=== PATIENT | male | born 1945 | race Caucasian/White ===

== ENCOUNTER 2017-04-17 13:21 | Emergency (ER) | payer OTHER ==
[2017-04-17 13:27] VITALS: BMI 29.8
[2017-04-17] MEDS ORDERED: LR 1000 ML IV 1,000 ML IV ONE ×2 (13:50→13:56)
[2017-04-17] MEDS ORDERED: PHENERGAN INJ 25 MG IV ONE (13:51)
[2017-04-17] MEDS ORDERED: MORPHINE SULFATE INJ 4 MG IVP ONE (13:53)
[2017-04-17] MEDS ORDERED: PHENERGAN INJ 25 MG ONE (13:55)
[2017-04-17] MEDS ORDERED: MORPHINE SULFATE INJ 4 MG ONE (13:56)
--- NOTE | 2017-04-17 13:59 | DR.GENAD ---
HPI - PCP Primary Care Physician: DR. AGUILAR - Complaint/Symptoms Chief Complaint Doctors Comments: Patient admits to a headache for one month, he has not taken any medication to date for headache. He was seen last week by his math tutor and given IV fluids. 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 He was scheduled to go to [place] this week for treatment but the weather was too bad. Today presents with dizziness and headache. Spouse reports that he has hydrocodone 5/325 but he will not take the medication because the acetaminophen causes liver damage. Chief Complaint:: PATIENT STATED HE HAS HAD A REALLY BAD HEADACHE FOR WEEKS, DIZZY, WEAK. PATIENT HAS COLON CA AND LEFT LUNG CA. - Source History Provided: Patient - Mode of Arrival Mode of Arrival: Ambulatory - Timing Onset of Chief Complaint: 04/03/17 PMH - PMH Past Medical History: Yes Past Medical History Comment: CANCER Past Surgical History: Yes Surgical History: Abdominal Surgery, Bowel Resection, Cholecystectomy - Family History History of Family Medical Conditions: No - Social History Does patient currently use any type of tobacco product: No Have you used tobacco products in the last 12 months: No Type of Tobacco Use: None Does any household member use tobacco: No Alcohol Use: None Do you use any recreational Drugs:: No Lives With: Family Lives Where: Home - infectious screening In the last 2 months have you had wt loss of >10#?: NO Have you had fever, night sweats or hemotysis?: No Have you traveled outside the country in the last 6 months?: No Isolation: Standard ROS - Review of Systems Eyes: No Symptoms Reported ENTM: No Symptoms Reported Respiratoy: Other (lung cancer) Cardiovascular: No Symptoms Reported Gastrointestinal/Abdominal: No Symptoms Reported Genitourinary: No Symptoms Reported Neurological: Headache, Weakness, Dizziness Musculoskeletal: No Symptoms Reported Integumentary: No Symptoms Reported Hematologic/Lymphatic: No Symptoms Reported Endocrine: No Symptoms Reported Psychiatric: No Symptoms Reported All Other Systems: Reviewed and Negative PE - Vital Signs Vitals: Pulse Rate 80 Respiratory Rate 20 Blood Pressure [Right Arm] 124/66 Blood Pressure 182/87 O2 Sat by Pulse Oximetry 96 - General Limitations: No Limitations General Appearance: Alert, In No Apparent Distress - Head Head Exam: Normal Inspection, Atraumatic - Eyes Eye exam: Normal Appearance, PERRL, EOMI - ENT ENT Exam: Normal Exam External Ear Exam: Normal External Inspection TM/Canal Exam: Bilateral Normal Nose Exam: Normal Nose Exam Mouth Exam: Normal Inspection Throat Exam: Normal Inspection - Neck Neck Exam: Normal Inspection - Chest Chest Inspection: Normal Inspection - Respiratory Respiratory Exam: Normal Lung Sounds Bilat Respiratory Exam: Bilateral Clear to Auscultation - Cardiovascular Cardiovascular Exam: Regular Rate - Abdominal Exam Abdominal Exam: Normal Inspection, Normal Bowel Sounds Abdominal Tenderness: negative: RUQ, RLQ, LUQ, LLQ, Epigastrium, Suprapubic, Diffuse, Mild, Moderate, Severe, Other - Extremities Extremities Exam: Normal Inspection, Full ROM - Back Back Exam: Normal Inspection - Neurologic Neurological Exam: Alert, Oriented X3, CN II-XII Intact, Other (frontal headache ) - Psychiatric Psychiatric Exam: Normal Affect, Normal Mood - Skin Skin Exam: Warm, Dry, Intact Course - Reevaluation 1st: Improved (Headache better, not constant 1232) ROR - Labs Reviewed Result Diagrams: 04/17/17 14:08 04/17/17 14:08 Laboratory: WBC 7.2 X10^3/uL (3.6-10.0) 04/17/17 14:08 RBC 4.81 X10^6/uL (4.7-6.0) 04/17/17 14:08 Hgb 14.1 g/dL (13.5-18.0) 04/17/17 14:08 Hct 41.0 % (42.0-54.0) L 04/17/17 14:08 MCV 85.2 fL (80.0-100.0) 04/17/17 14:08 MCH 29.3 pg (27.0-34.0) 04/17/17 14:08 MCHC 34.4 g/dL (33.0-35.0) 04/17/17 14:08 RDW 14.4 % (11.6-16.5) 04/17/17 14:08 Plt Count 162 X10^3/uL (150.0-450.0) 04/17/17 14:08 MPV 7.7 fL (7.4-11.0) 04/17/17 14:08 Neut % 82.2 % (42.0-75.0) H 04/17/17 14:08 Lymph % 12.9 % (21.0-51.0) L 04/17/17 14:08 [place] % 3.0 % (0.0-13.0) 04/17/17 14:08 Eos % 1.2 % (0.9-2.9) 04/17/17 14:08 Baso % 0.7 % (0.2-1.0) 04/17/17 14:08 Neut # 6.0 x10^3/uL (2.2-4.8) H 04/17/17 14:08 Lymph # 0.9 X10^3/uL (1.3-2.9) L 04/17/17 14:08 [place] # 0.2 x10^3/uL (0.3-0.8) L 04/17/17 14:08 Eos # 0.1 x10^3/uL (0.0-0.2) 04/17/17 14:08 Baso # 0.0 X10^3/uL (0.0-0.1) 04/17/17 14:08 Absolute Nucleated RBC 0.0 /100WBC 04/17/17 14:08 Sodium 140 mmol/L (136-145) 04/17/17 14:08 Corrected Sodium 141 mmol/L (136-145) 04/17/17 14:08 Potassium 4.5 mmol/L (3.5-5.1) 04/17/17 14:08 Chloride 104 mmol/L (98-107) 04/17/17 14:08 Carbon Dioxide 24.4 mmol/L (21-32) 04/17/17 14:08 BUN 19 mg/dL (7-18) H 04/17/17 14:08 Creatinine 1.28 mg/dL (0.70-1.30) 04/17/17 14:08 Est GFR (MDRD) Af Amer > 60 (>60) 04/17/17 14:08 Est GFR (MDRD) Non-Af 59 (>60) 04/17/17 14:08 Glucose 129 mg/dL (65-99) H 04/17/17 14:08 Calcium 9.3 mg/dL (8.5-10.1) 04/17/17 14:08 Corrected Calcium TNP 04/17/17 14:08 Total Bilirubin 0.40 mg/dL (0.2-1.0) 04/17/17 14:08 AST 22 Units/L (15-37) 04/17/17 14:08 ALT 31 Units/L (12-78) 04/17/17 14:08 Alkaline Phosphatase 103 Units/L (46-116) 04/17/17 14:08 Total Protein 7.3 g/dL (6.4-8.2) 04/17/17 14:08 Albumin 3.7 g/dL (3.4-5.0) 04/17/17 14:08 Globulin 3.6 g/dL (2.5-4.5) 04/17/17 14:08 Albumin/Globulin Ratio 1.0 Ratio (1.1-2.1) L 04/17/17 14:08 - Diagnosis Discharge Problem: Headache Qualifiers: Headache type: unspecified Headache chronicity pattern: chronic headache Intractability: not intractable Qualified Code(s): R51 - Headache Lung cancer Qualifiers: Laterality: unspecified laterality Lung location: unspecified part of lung Qualified Code(s): C34.90 - Malignant neoplasm of unspecified part of unspecified bronchus or lung - Discharge Plan Condition: Stable - Follow ups/Referrals Follow ups/Referrals: ZACH AGUILAR [Primary Care Provider] - 3 days - Instructions
[2017-04-17 14:17] LABS: BASOPHILS % (AUTO) 0.7 % (0.2-1.0); EOSINOPHILS # (AUTO) 0.1 x10^3/uL (0.0-0.2); EOSINOPHILS % (AUTO) 1.2 % (0.9-2.9); HEMOGLOBIN 14.1 g/dL (13.5-18.0); LYMPHOCYTES # (AUTO) 0.9 X10^3/uL (1.3-2.9); LYMPHOCYTES % (AUTO) 12.9 % (21.0-51.0); MEAN CORPUSCULAR HEMOGLOBIN 29.3 pg (27.0-34.0); MEAN CORPUSCULAR HGB CONC 34.4 g/dL (33.0-35.0); MEAN CORPUSCULAR VOLUME 85.2 fL (80.0-100.0); MEAN PLATELET VOLUME 7.7 fL (7.4-11.0); MONOCYTES # (AUTO) 0.2 x10^3/uL (0.3-0.8); NEUTROPHILS % (AUTO) 82.2 % (42.0-75.0); PLATELET COUNT 162 X10^3/uL (150.0-450.0); RED BLOOD COUNT 4.81 X10^6/uL (4.7-6.0); RED CELL DISTRIBUTION WIDTH 14.4 % (11.6-16.5); WHITE BLOOD COUNT 7.2 X10^3/uL (3.6-10.0)
[2017-04-17 14:31] LABS: ALANINE AMINOTRANSFERASE 31 Units/L (12-78); ALBUMIN 3.7 g/dL (3.4-5.0); ALKALINE PHOSPHATASE 103 Units/L (46-116); ASPARTATE AMINO TRANSFERASE 22 Units/L (15-37); BLOOD UREA NITROGEN 19 mg/dL (7-18); CALCIUM 9.3 mg/dL (8.5-10.1); CARBON DIOXIDE 24.4 mmol/L (21-32); CHLORIDE 104 mmol/L (98-107); COR NA(FOR HYPERGLY) 141 mmol/L (136-145); CREATININE 1.28 mg/dL (0.70-1.30); SODIUM 140 mmol/L (136-145); TOTAL PROTEIN 7.3 g/dL (6.4-8.2); eGFR BLACK RACES > 60 (>60); eGFR NON BLACK RACES 59 (>60)
[2017-04-17 15:52] VITALS: BP 142/72
== END 2017-04-17 15:50 | disposition home or self-care (01) ==
LOC: ER 13:29
DX: R51 Headache (principal); C34.90 Malignant neoplasm of unspecified part of unspecified bronchus or lung
CPT/HCPCS: 36415; 80053; 85025; 96365; 96367; 96374; 96375; 99283; J2270; J2550; J7120

== ENCOUNTER 2017-07-21 12:29 | Emergency (ER) | payer OTHER ==
[2017-07-21 12:40] VITALS: BMI 28.8
[2017-07-21 13:08] LABS: HEMOGLOBIN 13.3 g/dL (13.5-18.0); NEUTROPHILS # (AUTO) 20.2 x10^3/uL (2.2-4.8); WHITE BLOOD COUNT 23.2 X10^3/uL (3.6-10.0)
[2017-07-21] MEDS ORDERED: NS 1000 ML 1,000 ML ONE (13:10)
[2017-07-21 13:28] LABS: BASOPHILS % (AUTO) 0.1 % (0.2-1.0); HEMATOCRIT 40.3 % (42.0-54.0); LYMPHOCYTES # (AUTO) 1.2 X10^3/uL (1.3-2.9); MEAN CORPUSCULAR HEMOGLOBIN 28.8 pg (27.0-34.0); MEAN CORPUSCULAR VOLUME 87.2 fL (80.0-100.0); MEAN PLATELET VOLUME 8.4 fL (7.4-11.0); MONOCYTES # (AUTO) 1.9 x10^3/uL (0.3-0.8); NEUTROPHILS % (AUTO) 86.9 % (42.0-75.0); PLATELET COUNT 107 X10^3/uL (150.0-450.0); RED BLOOD COUNT 4.62 X10^6/uL (4.7-6.0); RED CELL DISTRIBUTION WIDTH 17.6 % (11.6-16.5)
[2017-07-21 13:30] LABS: B-TYPE NATRIURETIC PEPTIDE 103 pg/mL (0-79)
[2017-07-21 13:39] LABS: PLATELET MORPHOLOGY COMMENT NORMAL (NORMAL)
[2017-07-21 13:51] LABS: ALANINE AMINOTRANSFERASE 35 Units/L (12-78); ALBUMIN 3.3 g/dL (3.4-5.0); ALKALINE PHOSPHATASE 68 Units/L (46-116); ASPARTATE AMINO TRANSFERASE 29 Units/L (15-37); BLOOD UREA NITROGEN 34 mg/dL (7-18); CALCIUM 8.8 mg/dL (8.5-10.1); CARBON DIOXIDE 20.3 mmol/L (21-32); CHLORIDE 103 mmol/L (98-107); CKMB % 10.5 % (<4); COR CA(FOR HYPOALB) 9.4 mg/dL (8.5-10.1); COR NA(FOR HYPERGLY) 140 mmol/L (136-145); CREATINE KINASE 79 Units/L (39-308); CREATININE 1.67 mg/dL (0.70-1.30); SODIUM 138 mmol/L (136-145); TOTAL PROTEIN 6.7 g/dL (6.4-8.2); eGFR BLACK RACES 52 (>60); eGFR NON BLACK RACES 43 (>60)
[2017-07-21 13:55] LABS: TROPONIN I 2.18 ng/mL (0-1.5)
[2017-07-21 13:56] LABS: CREATINE KINASE MB 8.3 ng/mL (0-4.0)
[2017-07-21] MEDS ORDERED: NS 1000 ML 1,000 ML IV SCH (14:00)
[2017-07-21] MEDS ORDERED: HEPARIN SODIUM IN D5W 25,000 UNITS/500 ML BAG IV PRN (14:52)
[2017-07-21] MEDS ORDERED: NITROGLYCERIN IV PREMIX 50 MG 50 MG/250 ML BAG IV PRN (14:52)
[2017-07-21] MEDS ORDERED: LOPRESSOR INJ 5 MG AMP IVP ONE (14:53)
--- NOTE | 2017-07-21 14:55 | DR.SOBA ---
HPI - Time Seen Time seen: 12:50 - Primary Care Physician Primary Care Physician: John - HPI Comment HPI Comment: PATIENT HAVE METASTATIC CA BRAIN, LUNGS COLORECTAL WITH RECENT CHEMO AND RADIATION THERAPY. NORMAL WEAK BUT WORSE TODAY. SOB WHICH STARTED THIS AM. SLIGHT CHEST PRESSURE. TAKING STERIOD AND JUST FINISH ANTIBIOTIC FOR BRONCHITIS. NO HISTORY OF SIGNIFICANT CAD. - Complaints Chief Complaint Doctors Comments: INCREASING SOB AND WEAKNESS TIMES ONE HOUR. Chief Complaint:: "He was trying to cook breakfast and he started having chest pains with a hard time breathing like he was going to throw up and all. When he sat down in his chair he couldn't get up." - Reviewed Nurses Notes Reviewed: Yes - Source History Provided: Patient - Mode of Arrival Mode of Arrival: Wheelchair - Timing Onset of Chief Complaint: 07/21/17 - Duration Duration: Hours - Context Onset:: At Rest PE Risk Factors:: None History of:: None Currently on:: Steroids Prehospital Care:: None - Modifying Factors Worsens:: Nothing Improves:: Nothing - Associated Signs and Symptoms Associated Signs and Symptoms: Wheeze, Cough, Chest Pain - If Chest Pain Quality: Sharp Location: Right Lower Chest, Left Lower Chest - If Cough Cough: Productive PMH - PMH Past Medical History: Yes Past Medical History Comment: Extensive cancer - brain, lung, colorectal Past Surgical History: Yes Surgical History: Abdominal Surgery, Bowel Resection, Cholecystectomy - Family History History of Family Medical Conditions: Yes Family Medical History: Cancer - Social History Does patient currently use any type of tobacco product: No Have you used tobacco products in the last 12 months: No Type of Tobacco Use: None Does any household member use tobacco: No Alcohol Use: None Do you use any recreational Drugs:: No Lives With: Family Lives Where: Home - infectious screening In the last 2 months have you had wt loss of >10#?: NO Have you had fever, night sweats or hemotysis?: No Have you traveled outside the country in the last 6 months?: No Isolation: Standard ROS - Review of Systems Constitutional: Weakness, Fatigue, Loss of Appetite. negative: Chills, Fever Eyes: negative: Eye Pain, Discharge ENTM: negative: Ear Pain, Nose Discharge, Nose Congestion, Throat Pain Respiratoy: Productive Cough, Short of Breath, Wheezing. negative: Hemoptysis Cardiovascular: Chest Pain Gastrointestinal/Abdominal: No Symptoms Reported. negative: Abdominal Pain, Nausea, Vomiting Genitourinary: negative: Dysuria, Frequency, Hematuria Neurological: Weakness. negative: Headache, Dizziness Musculoskeletal: Muscle Pain Integumentary: Change in Color Hematologic/Lymphatic: No Symptoms Reported Endocrine: No Symptoms Reported All Other Systems: Reviewed and Negative PE - Vital Signs Vitals: Temperature 97.0 F Pulse Rate [Right Brachial] 112 Pulse Rate 155 Respiratory Rate 26 Blood Pressure [Right Arm] 95/64 Blood Pressure 116/64 O2 Sat by Pulse Oximetry 98 - General Limitations: No Limitations General Appearance: Alert - Head Head Exam: Normal Inspection - Eyes Eye exam: Normal Appearance - ENT ENT Exam: Normal External Ear Exam - Neck Neck Exam: Trachea Midline - Chest Chest Inspection: Symmetric Chest Wall Rise - Respiratory Respiratory Exam: Bilateral Wheezing, Bilateral Rhonchi, Upper Wheezing, Upper Rhonchi, Lower Wheezing, Lower Rhonchi - Cardiovascular Cardiovascular Exam: Regular Rate, Normal Rhythm, Normal Heart Sounds - Abdominal Exam Abdominal Exam: Normal Bowel Sounds, Soft. negative: Tenderness - Extremities Extremities Exam: Normal Inspection - Back Back Exam: Paraspinal Tenderness - Neurologic Neurological Exam: Alert, Oriented X3, CN II-XII Intact. negative: Motor Sensory Deficit - Skin Skin Exam: Normal Color MDM - Additional Information Obtained Additional Information Obtained From: Family - Differential Diagnosis Differential Diagnosis: Bronchitis, CHF, Dysrhythmia, Hyponatremia, Mycardial Infarction, Pneumonia, Pneumothorax, Pulmonary embolism, Respiratory Insufficiency, Sinusitis, URI Course - Treatment Treatment: SEE ORDERS. IV HEPARIN AND IV NTG IN ED. - Consultation Consultation Comments: PATIENT ACCEPTED BY DR. KIM AT [facility]. - Education/Counseling Education/Counseling: Patient, Family, Education Educated On: Treatment, Diagnosis, Needs for Follow Up ROR - Labs Reviewed Laboratory Results Reviewed?: Yes Result Diagrams: 07/21/17 13:00 07/21/17 13:00 Laboratory: 07/21/17 15:50 Blood Blood Culture - Preliminary 07/21/17 15:50 Blood Blood Culture - Preliminary WBC 23.2 X10^3/uL (3.6-10.0) H 07/21/17 13:00 RBC 4.62 X10^6/uL (4.7-6.0) L 07/21/17 13:00 Hgb 13.3 g/dL (13.5-18.0) L 07/21/17 13:00 Hct 40.3 % (42.0-54.0) L 07/21/17 13:00 MCV 87.2 fL (80.0-100.0) 07/21/17 13:00 MCH 28.8 pg (27.0-34.0) 07/21/17 13:00 MCHC 33.0 g/dL (33.0-35.0) 07/21/17 13:00 RDW 17.6 % (11.6-16.5) H 07/21/17 13:00 Plt Count 107 X10^3/uL (150.0-450.0) L 07/21/17 13:00 Plt Count Comment Adequate (ADEQUATE) 07/21/17 13:00 MPV 8.4 fL (7.4-11.0) 07/21/17 13:00 Neut % 86.9 % (42.0-75.0) H 07/21/17 13:00 Lymph % 5.0 % (21.0-51.0) L 07/21/17 13:00 [place] % 8.0 % (0.0-13.0) 07/21/17 13:00 Eos % 0.0 % (0.9-2.9) L 07/21/17 13:00 Baso % 0.1 % (0.2-1.0) L 07/21/17 13:00 Neut # 20.2 x10^3/uL (2.2-4.8) H 07/21/17 13:00 Lymph # 1.2 X10^3/uL (1.3-2.9) L 07/21/17 13:00 [place] # 1.9 x10^3/uL (0.3-0.8) H 07/21/17 13:00 Eos # 0.0 x10^3/uL (0.0-0.2) 07/21/17 13:00 Baso # 0.0 X10^3/uL (0.0-0.1) 07/21/17 13:00 Absolute Nucleated RBC 0.1 /100WBC 07/21/17 13:00 Total Counted 100 07/21/17 13:00 Neutrophils % (Manual) 90 % (39-76) H 07/21/17 13:00 Lymphocytes % (Manual) 7 % (13-43) L 07/21/17 13:00 Monocytes % (Manual) 3 % (4-9) L 07/21/17 13:00 Plt Morphology Comment Normal (NORMAL) 07/21/17 13:00 RBC Morphology Normal (NORMAL) 07/21/17 13:00 INR Target Range - 07/21/17 13:00 INR 1.31 (0.8-1.3) H 07/21/17 13:00 PTT 27.7 SECONDS (22.9-36.5) 07/21/17 13:00 PTT Comment - 07/21/17 13:00 D-Dimer > 5000 ng/mL (0-400) H* 07/21/17 13:00 Sodium 138 mmol/L (136-145) 07/21/17 13:00 Corrected Sodium 140 mmol/L (136-145) 07/21/17 13:00 Potassium 4.8 mmol/L (3.5-5.1) 07/21/17 13:00 Chloride 103 mmol/L (98-107) 07/21/17 13:00 Carbon Dioxide 20.3 mmol/L (21-32) L 07/21/17 13:00 BUN 34 mg/dL (7-18) H 07/21/17 13:00 Creatinine 1.67 mg/dL (0.70-1.30) H 07/21/17 13:00 Est GFR (MDRD) Af Amer 52 (>60) L 07/21/17 13:00 Est GFR (MDRD) Non-Af 43 (>60) L 07/21/17 13:00 Glucose 170 mg/dL (65-99) H 07/21/17 13:00 Lactic Acid 3.7 mmol/L (0.4-2.0) H 07/21/17 15:55 Calcium 8.8 mg/dL (8.5-10.1) 07/21/17 13:00 Corrected Calcium 9.4 mg/dL (8.5-10.1) 07/21/17 13:00 Total Bilirubin 0.50 mg/dL (0.2-1.0) 07/21/17 13:00 AST 29 Units/L (15-37) 07/21/17 13:00 ALT 35 Units/L (12-78) 07/21/17 13:00 Alkaline Phosphatase 68 Units/L (46-116) 07/21/17 13:00 Creatine Kinase 79 Units/L (39-308) 07/21/17 13:00 CK-MB (CK-2) 8.3 ng/mL (0-4.0) H* 07/21/17 13:00 CK/CKMB % Calc 10.5 % (<4) 07/21/17 13:00 Troponin I 2.18 ng/mL (0-1.5) H* 07/21/17 13:00 B-Natriuretic Peptide 103 pg/mL (0-79) H 07/21/17 13:00 Total Protein 6.7 g/dL (6.4-8.2) 07/21/17 13:00 Albumin 3.3 g/dL (3.4-5.0) L 07/21/17 13:00 Globulin 3.4 g/dL (2.5-4.5) 07/21/17 13:00 Albumin/Globulin Ratio 1.0 Ratio (1.1-2.1) L 07/21/17 13:00 - XRAY XRAY Findings: REPORT DISCUSS WITH PATIENT AND FAMILY. - EKG Rhythm: NSR (EKG NOTED) - Diagnosis Discharge Problem: Respiratory distress, Non Q wave myocardial infarction Chest pain Qualifiers: Chest pain type: precordial pain Qualified Code(s): R07.2 - Precordial pain Pulmonary embolism Qualifiers: Pulmonary embolism type: septic Chronicity: acute Acute cor pulmonale presence : without acute cor pulmonale Qualified Code(s): I26.90 - Septic pulmonary embolism without acute cor pulmonale - Discharge Plan Disposition: 02 XFER T-[facility] Condition: Stable - Follow ups/Referrals Follow ups/Referrals: ZACH AGUILAR [Primary Care Provider] - 3 days - Instructions
[2017-07-21] MEDS ORDERED: ASPIRIN 81 MG CHEWTAB PO SCH (15:00)
[2017-07-21] MEDS ORDERED: LOPRESSOR INJ 5 MG AMP ONE (15:09)
[2017-07-21] MEDS ORDERED: NS 100 ML IV 100 ML IV ONE (15:18)
[2017-07-21] MEDS ORDERED: HEPARIN SODIUM IN D5W 25,000 UNITS/500 ML BAG IV ONE (15:37)
[2017-07-21] MEDS ORDERED: NITROGLYCERIN IV PREMIX 50 MG 50 MG/250 ML BAG IV ONE (15:43)
[2017-07-21] MEDS ORDERED: HEPARIN SODIUM INJ 5000 UNITS ONE (15:48)
--- NOTE | 2017-07-21 16:13 | RAD ---
Examination: Portable AP chest History: Chest pain and SOB, tumors in left lung Findings: The heart is borderline enlarged. Pulmonary volumes are diminished. A left jugular line ent ers the superior vena cava. There is discoid atelectasis in the right parahilar area. There is a left parahilar soft tissue mass measuring 4 X 5 cm with indistinct margins. Surgical clips are present in this region. No pleural fluid or bone destruction is seen. Impression: Borderline cardiomegaly. Right parahilar discoid atelectasis. Left parahilar soft tissue mass consistent with neoplasm. Compare with prior imaging/follow-up. Reported By:
[2017-07-21] MEDS ORDERED: ROCEPHIN VIAL 1 GM 1 GM in NS 50 ML IV + SPIKE MINIBAG* 50 ML IV ONE (16:16)
[2017-07-21] MEDS ORDERED: ROCEPHIN 1 GM IV PREMIX 1 GM/50 ML IV.SOLN. IV ONE (16:39)
[2017-07-21 16:41] VITALS: BP 95/64
--- NOTE | 2017-07-21 17:13 | CT ---
HISTORY: Elevated D-dimer, shortness of breath, chest pain Study: CTA chest PE protocol Comparison: None Technique: Multiple axial images were obtained from the thoracic inlet to the level of the upper abdomen after t he administration of IV contrast per PE protocol. Maximum intensity projection images were obtained i n the coronal and sagittal planes as well. Findings: Imaging of the chest demonstrates extensive bilateral pulmonary emboli, including a small saddle embo lindsay within the pulmonary trunk and extending into the proximal main pulmonary arteries as well as mul tiple pulmonary emboli throughout the 3rd and 4th order pulmonary arterial branches and distally with in the bilateral upper lobes and bilateral lower lobes as well as the right middle lobe and lingula. There is evidence of right heart strain, with bowing of the interventricular septum and the left vent ricle. There are small airspace consolidations peripheral to the pulmonary emboli within the right up per lobe, possibly reflecting small pulmonary infarcts. Also visualized is bilateral suprahilar conso lidations which likely reflect fibrosis which could be secondary to prior radiation, if the patient h as the appropriate clinical history. Within the anterior segment of the left upper lobe there is a sp iculated nodule measuring 1.1 cm, possibly representing metastatic disease, given patient's history. A ground-glass 6 mm pulmonary nodule is also identified within the left lower lobe. There is a left c hest wall Port-A-Cath in place, the distal tip terminating within the superior vena cava. There is no pericardial effusion. Evaluation of the upper abdomen demonstrates the patient to be status post cho lecystectomy. There is a fat containing ovoid structure anterior to the gallbladder fossa and measuri ng 4.2 cm in diameter, possibly postsurgical in nature. The bony structures are intact. IMPRESSION: 1. Extensive bilateral pulmonary emboli, including a small saddle embolus, with resultant right heart strain and possible developing peripheral small pulmonary infarcts. 2. Suprahilar fibrosis and pulmonary nodules. Please see above discussion. These results were discussed with Dr. Ackerman by Dr. Almendarez on 07/21/2017 at 5:11 p.m.. Reported By:
== END 2017-07-21 16:41 | disposition short-term general hospital (02) ==
LOC: ER 12:29
DX: I26.90 Septic pulmonary embolism without acute cor pulmonale (principal); I21.4 Non-ST elevation (NSTEMI) myocardial infarction; R07.2 Precordial pain; R06.03 Acute respiratory distress
CPT/HCPCS: 36415; 71010; 71275; 80053; 82550; 82553; 83605; 83880; 84484; 85025; 85378; 85610; 85730; 87040; 93005; 93010; 93041; 96365; 96367; 96374; 96375; 99285; A4222; J0696; J1644; J3490

== ENCOUNTER 2017-08-26 17:42 | Emergency (ER) | payer OTHER ==
[2017-08-26 17:56] VITALS: BMI 29.7
[2017-08-26] MEDS ORDERED: NS 1000 ML 1,000 ML IV ONE (21:53)
--- NOTE | 2017-08-26 21:53 | DR.GENAD ---
HPI - PCP Primary Care Physician: DARRYL YEUNG - Complaint/Symptoms Chief Complaint Doctors Comments: Patient diagnosed with colorectal cancer with mets to brain. Spouse states that he is not eating as he should and he has a decubitus ulcer on buttock. His decubitus is being treated . There is no vomiting just complaint of headache. Chief Complaint:: PT'S STATES PT HAS NOT TAKEN HIS ELIQUIS OR STEROIDS FOR THE PAST 2 DAYS AND THAT PT HAS HAD HIS LOVENOX TODAY .. PT HAS BEEN SLEEPING ALOT AND THAT HE HAS LUNG AND BRAIN CA,,,, PT'S CALLED DARRYL YEUNG PT WAS TOLD TO COME THE ER AND BE SEEN.. - Source History Provided: Patient, Family Member - Mode of Arrival Mode of Arrival: Wheelchair - Timing Onset of Chief Complaint: 08/26/17 PMH - PMH Past Medical History: Yes Past Medical History Comment: LUNG AND BRAIN CA Past Surgical History: Yes Surgical History: Abdominal Surgery, Bowel Resection, Cholecystectomy Past Surgical History Comment: COLON CANCER IN 2013 - Family History History of Family Medical Conditions: Yes Family Medical History: Cancer - Social History Does patient currently use any type of tobacco product: No Have you used tobacco products in the last 12 months: No Type of Tobacco Use: None Does any household member use tobacco: No Alcohol Use: None Do you use any recreational Drugs:: No Lives With: Family Lives Where: Home - infectious screening In the last 2 months have you had wt loss of >10#?: NO Have you had fever, night sweats or hemotysis?: No Have you traveled outside the country in the last 6 months?: No Isolation: Standard ROS - Review of Systems Eyes: No Symptoms Reported ENTM: No Symptoms Reported Respiratoy: No Symptoms Reported Cardiovascular: No Symptoms Reported Gastrointestinal/Abdominal: No Symptoms Reported Genitourinary: No Symptoms Reported Neurological: See HPI Musculoskeletal: No Symptoms Reported Integumentary: No Symptoms Reported Hematologic/Lymphatic: No Symptoms Reported Endocrine: No Symptoms Reported Psychiatric: No Symptoms Reported All Other Systems: Reviewed and Negative PE - Vital Signs Vitals: Temperature 97 F Pulse Rate 120 Respiratory Rate 18 Blood Pressure [Right Arm] 95/64 Blood Pressure 126/70 O2 Sat by Pulse Oximetry 97 - General Limitations: No Limitations General Appearance: In No Apparent Distress - Head Head Exam: Normal Inspection, Atraumatic - Eyes Eye exam: Normal Appearance, PERRL, EOMI - ENT ENT Exam: Normal Exam, Normal Oropharynx External Ear Exam: Normal External Inspection TM/Canal Exam: Bilateral Normal Nose Exam: Normal Nose Exam Mouth Exam: Normal Inspection Throat Exam: Normal Inspection - Neck Neck Exam: Normal Inspection, Full ROM - Chest Chest Inspection: Normal Inspection - Respiratory Respiratory Exam: Normal Lung Sounds Bilat Respiratory Exam: Bilateral Clear to Auscultation - Cardiovascular Cardiovascular Exam: Regular Rate, Normal Rhythm - Abdominal Exam Abdominal Exam: Normal Inspection, Normal Bowel Sounds Abdominal Tenderness: negative: RUQ, RLQ, LUQ, LLQ, Epigastrium, Suprapubic, Diffuse, Mild, Moderate, Severe, Other - Extremities Extremities Exam: Normal Inspection, Full ROM - Back Back Exam: Normal Inspection - Neurologic Neurological Exam: Oriented X3, CN II-XII Intact - Psychiatric Psychiatric Exam: Depressed - Skin Skin Exam: Warm, Dry, Intact Course - Reevaluation 1st: Unchanged ROR - Labs Reviewed Laboratory Results Reviewed?: Yes (reviewed CBC,Chem from earlier today wnl) Laboratory: INR Target Range - 08/26/17 22:10 INR 1.11 (0.8-1.3) 08/26/17 22:10 PTT 32.0 SECONDS (22.9-36.5) 08/26/17 22:10 PTT Comment - 08/26/17 22:10 - XRAY XRAY Interpreted by: Radiologist (CT Brain:There is a round,mildly hyperdense 2.7x2.4cm intra-axial mass within the right parietal lobe with moderate surrounding vasogenic edema. There is minimal associated effacement of the right parietal lobe sulcations. There is no associated midline shift. An additional hyper attenuating focus measuring approximately 7mm is present within the left cerebral hemisphere, also with mild surrounding vasogenic edema. No definite additional intracranial lesions are identified, within the limitations of a noncontrast exam. There are patchy areas of subcortical hypoattenuation within the right frontal lobe, nonspecific but suggestive for mild microangiopathic disease. Millan-white differentation is otherwise maintained. No visible acute infract, extra-axial collection or hydrocephalus is is identified. Minimal mucosal thickening and trace fluid is present within the left maxillary sinus. The remaining visualized paranssal sinuses and mastoid air cells are clear. The remaining extracranial structures are grossly unremarkable. Recommend MRI on outpatient basis.) - Diagnosis Discharge Problem: Left maxillary sinusitis Headache Qualifiers: Headache type: unspecified Headache chronicity pattern: acute headache Intractability: not intractable Qualified Code(s): R51 - Headache - Discharge Plan Condition: Stable - Follow ups/Referrals Follow ups/Referrals: NFD,None [Primary Care Provider] - 3 days - Instructions
[2017-08-26] MEDS ORDERED: NS 1000 ML 1,000 ML ONE (21:57)
--- NOTE | 2017-08-26 23:41 | CT ---
CT head without contrast Indication: 'Fall 1 week ago, knee pain, shortness of breath, sedated, history of colon cancer with b rain metastases' Technique: Helical CT images of the brain were obtained without IV contrast. Reformatted images in th e coronal and sagittal planes were also generated for review. Comparison: None Findings: There is a round, mildly hyperdense 2.7 x 2.4 cm intra-axial mass within the right parietal lobe (image 20, series 4 and image 33, series 5) with moderate surrounding vasogenic edema. There is minimal associated effacement of the right parietal lobe sulcations. There is no associated midline shift. An additional hyper attenuating focus measuring approximately 7 mm is present within the left cerebral hemisphere, also with mild surrounding vasogenic edema. No definite additional intracranial lesions are identified, within the limitations of a noncontrast e xam. There are patchy areas of subcortical hypoattenuation within the right frontal lobe, nonspecific but suggestive for mild microangiopathic disease. Millan-white differentiation is otherwise maintained . No visible acute infarct, extra-axial collection or hydrocephalus is identified. Minimal mucosal th ickening and trace fluid is present within the left maxillary sinus. The remaining visualized paranas al sinuses and mastoid air cells are clear. The remaining extracranial structures are grossly unremar kable. Impression: No definite acute intracranial abnormality. 2.7 cm hyperattenuating intra-axial lesion within the right parietal lobe with moderate surrounding e nomi, most compatible with patient's known intracranial metastatic disease. There is also an addition al 7 mm similar appearing lesion within the left cerebral hemisphere. Comparison with prior imaging i s recommended. Contrast enhanced MRI on a nonemergent, out-patient basis should also be considered, a s clinically indicated. The above findings were discussed with Dr. Ocampo by Dr. Gimenez at 11:40 p.m. 08/26/2017. Reported By:
[2017-08-27 01:02] VITALS: BP 135/78
== END 2017-08-27 00:50 | disposition home or self-care (01) ==
LOC: ER 18:05
DX: R51 Headache (principal); C71.9 Malignant neoplasm of brain, unspecified
CPT/HCPCS: 36415; 70450; 85610; 85730; 96365; 96367; 96374; 99283

== ENCOUNTER → 2017-08-26 | Outpatient (CLI) | payer OTHER ==
[2017-08-26 14:31] LABS: BASOPHILS % (AUTO) 0.3 % (0.2-1.0); EOSINOPHILS # (AUTO) 0.1 x10^3/uL (0.0-0.2); EOSINOPHILS % (AUTO) 0.6 % (0.9-2.9); HEMATOCRIT 42.4 % (42.0-54.0); HEMOGLOBIN 14.6 g/dL (13.5-18.0); LYMPHOCYTES # (AUTO) 1.2 X10^3/uL (1.3-2.9); LYMPHOCYTES % (AUTO) 13.2 % (21.0-51.0); MEAN CORPUSCULAR HEMOGLOBIN 30.5 pg (27.0-34.0); MEAN CORPUSCULAR HGB CONC 34.6 g/dL (33.0-35.0); MEAN CORPUSCULAR VOLUME 88.1 fL (80.0-100.0); MEAN PLATELET VOLUME 7.7 fL (7.4-11.0); MONOCYTES # (AUTO) 0.4 x10^3/uL (0.3-0.8); MONOCYTES % (AUTO) 4.1 % (0.0-13.0); NEUTROPHILS # (AUTO) 7.4 x10^3/uL (2.2-4.8); NEUTROPHILS % (AUTO) 81.8 % (42.0-75.0); PLATELET COUNT 142 X10^3/uL (150.0-450.0); RED BLOOD COUNT 4.81 X10^6/uL (4.7-6.0); RED CELL DISTRIBUTION WIDTH 17.7 % (11.6-16.5); WHITE BLOOD COUNT 9.1 X10^3/uL (3.6-10.0)
[2017-08-26 14:45] LABS: ALANINE AMINOTRANSFERASE 41 Units/L (12-78); ALBUMIN 3.1 g/dL (3.4-5.0); ALKALINE PHOSPHATASE 69 Units/L (46-116); ASPARTATE AMINO TRANSFERASE 23 Units/L (15-37); BLOOD UREA NITROGEN 20 mg/dL (7-18); CALCIUM 9.4 mg/dL (8.5-10.1); CARBON DIOXIDE 24.4 mmol/L (21-32); CHLORIDE 101 mmol/L (98-107); COR CA(FOR HYPOALB) 10.1 mg/dL (8.5-10.1); COR NA(FOR HYPERGLY) 137 mmol/L (136-145); CREATININE 1.22 mg/dL (0.70-1.30); SODIUM 136 mmol/L (136-145); TOTAL PROTEIN 6.9 g/dL (6.4-8.2); eGFR BLACK RACES > 60 (>60); eGFR NON BLACK RACES > 60 (>60)
== END ==
LOC: LAB 14:09
PROVIDERS: ATTEND Internal Medicine
DX: C78.02 Secondary malignant neoplasm of left lung (principal)
CPT/HCPCS: 36415; 80053; 85025

== ENCOUNTER → 2017-09-10 | Outpatient (CLI) | payer OTHER ==
[2017-08-27 01:02] VITALS: BP 135/78
== END ==
LOC: LAB 13:52
PROVIDERS: ATTEND Internal Medicine Hematology & Oncology
DX: Z79.01 Long term (current) use of anticoagulants (principal)
CPT/HCPCS: 36415; 85610

== ENCOUNTER → 2017-09-19 | Outpatient (CLI) | payer OTHER ==
[2017-08-27 01:02] VITALS: BP 135/78
== END ==
LOC: LAB 12:18
PROVIDERS: ATTEND Internal Medicine Hematology & Oncology
DX: Z79.01 Long term (current) use of anticoagulants (principal)
CPT/HCPCS: 36415; 85610

== ENCOUNTER → 2017-09-26 | Outpatient (CLI) | payer OTHER ==
[2017-08-27 01:02] VITALS: BP 135/78
[2017-09-26 12:23] LABS: BASOPHILS # (AUTO) 0.1 X10^3/uL (0.0-0.1); BASOPHILS % (AUTO) 1.2 % (0.2-1.0); EOSINOPHILS % (AUTO) 0.4 % (0.9-2.9); HEMATOCRIT 36.1 % (42.0-54.0); HEMOGLOBIN 12.6 g/dL (13.5-18.0); LYMPHOCYTES # (AUTO) 1.3 X10^3/uL (1.3-2.9); LYMPHOCYTES % (AUTO) 15.9 % (21.0-51.0); MEAN CORPUSCULAR HEMOGLOBIN 30.3 pg (27.0-34.0); MEAN CORPUSCULAR HGB CONC 34.8 g/dL (33.0-35.0); MEAN CORPUSCULAR VOLUME 87.1 fL (80.0-100.0); MEAN PLATELET VOLUME 7.2 fL (7.4-11.0); MONOCYTES # (AUTO) 0.3 x10^3/uL (0.3-0.8); MONOCYTES % (AUTO) 4.3 % (0.0-13.0); NEUTROPHILS # (AUTO) 6.2 x10^3/uL (2.2-4.8); NEUTROPHILS % (AUTO) 78.2 % (42.0-75.0); PLATELET COUNT 229 X10^3/uL (150.0-450.0); RED BLOOD COUNT 4.15 X10^6/uL (4.7-6.0); RED CELL DISTRIBUTION WIDTH 17.3 % (11.6-16.5); WHITE BLOOD COUNT 7.9 X10^3/uL (3.6-10.0)
[2017-09-26 12:46] LABS: ALANINE AMINOTRANSFERASE 28 Units/L (12-78); ALKALINE PHOSPHATASE 65 Units/L (46-116); ASPARTATE AMINO TRANSFERASE 16 Units/L (15-37); BLOOD UREA NITROGEN 20 mg/dL (7-18); CALCIUM 9.3 mg/dL (8.5-10.1); CHLORIDE 102 mmol/L (98-107); COR CA(FOR HYPOALB) 10.1 mg/dL (8.5-10.1); COR NA(FOR HYPERGLY) 138 mmol/L (136-145); CREATININE 1.17 mg/dL (0.70-1.30); SODIUM 137 mmol/L (136-145); TOTAL PROTEIN 6.4 g/dL (6.4-8.2); eGFR BLACK RACES > 60 (>60); eGFR NON BLACK RACES > 60 (>60)
== END ==
LOC: LAB 12:04
PROVIDERS: ATTEND Internal Medicine Hematology & Oncology
DX: C78.02 Secondary malignant neoplasm of left lung (principal); Z79.01 Long term (current) use of anticoagulants
CPT/HCPCS: 36415; 80053; 85025; 85610

== ENCOUNTER 2017-10-16 14:53 | Inpatient (IN) | payer OTHER ==
--- NOTE | 2017-10-16 15:47 | DR.GENAD ---
HPI - PCP Primary Care Physician: BASILIO - Complaint/Symptoms Chief Complaint:: SPOUSE STATES PT. BECOMES EASILY DEHYDRATED AND HAS HAD A DECREASED APPEPTITE FOR ABOUT 2-3 DAYS NOW WELL WEAKNESS AND DECREASED URINARY OUTPUT. SHE CALLED PCP AND THEY TOLD HER TO BRING TO THE ER. - Source History Provided: Patient, Family Member - Mode of Arrival Mode of Arrival: Wheelchair - Timing Onset of Chief Complaint: 10/13/17 PMH - PMH Past Medical History: Yes Past Medical History Comment: COLON CANCER WITH METS TO BRAIN AND LUNG, PE Past Surgical History: Yes Surgical History: Abdominal Surgery, Cholecystectomy Past Surgical History Comment: PORT A CATH - Family History History of Family Medical Conditions: Yes Family Medical History: Cancer - Social History Does patient currently use any type of tobacco product: No Have you used tobacco products in the last 12 months: No Type of Tobacco Use: None Does any household member use tobacco: No Alcohol Use: None Do you use any recreational Drugs:: No Lives With: Spouse Lives Where: Home - infectious screening In the last 2 months have you had wt loss of >10#?: NO Have you had fever, night sweats or hemotysis?: No Have you traveled outside the country in the last 6 months?: No Isolation: Standard PE - Vital Signs Vitals: Temperature 97 F Pulse Rate 103 Respiratory Rate 22 Blood Pressure [Right Arm] 135/78 Blood Pressure 127/85 O2 Sat by Pulse Oximetry 95 - General Limitations: No Limitations General Appearance: Alert, In No Apparent Distress - Head Head Exam: Normal Inspection, Atraumatic - Eyes Eye exam: Normal Appearance, PERRL, EOMI - ENT ENT Exam: Normal Exam External Ear Exam: Normal External Inspection TM/Canal Exam: Bilateral Normal Nose Exam: Normal Nose Exam, Sinus Tenderness Mouth Exam: Normal Inspection Throat Exam: Normal Inspection - Neck Neck Exam: Normal Inspection, Full ROM - Chest Chest Inspection: Normal Inspection - Respiratory Respiratory Exam: Normal Lung Sounds Bilat Respiratory Exam: Bilateral Clear to Auscultation - Cardiovascular Cardiovascular Exam: Regular Rate, Normal Rhythm - Abdominal Exam Abdominal Exam: Normal Inspection, Normal Bowel Sounds Abdominal Tenderness: negative: RUQ, RLQ, LUQ, LLQ, Epigastrium, Suprapubic, Diffuse, Mild, Moderate, Severe, Other - Extremities Extremities Exam: Normal Inspection - Back Back Exam: Normal Inspection - Neurologic Neurological Exam: Alert, Oriented X3, CN II-XII Intact - Psychiatric Psychiatric Exam: Normal Affect - Skin Skin Exam: Warm, Dry Course - Reevaluation 1st: Unchanged ROR - Labs Reviewed Result Diagrams: 10/16/17 15:30 10/16/17 15:30 Laboratory: WBC 14.8 X10^3/uL (3.6-10.0) H 10/16/17 15:30 RBC 4.83 X10^6/uL (4.7-6.0) 10/16/17 15:30 Hgb 14.2 g/dL (13.5-18.0) 10/16/17 15:30 Hct 40.4 % (42.0-54.0) L 10/16/17 15:30 MCV 83.7 fL (80.0-100.0) 10/16/17 15:30 MCH 29.3 pg (27.0-34.0) 10/16/17 15:30 MCHC 35.0 g/dL (33.0-35.0) 10/16/17 15:30 RDW 16.9 % (11.6-16.5) H 10/16/17 15:30 Plt Count 433 X10^3/uL (150.0-450.0) 10/16/17 15:30 MPV 7.6 fL (7.4-11.0) 10/16/17 15:30 Neut % (Auto) 81.1 % (42.0-75.0) H 10/16/17 15:30 Lymph % (Auto) 10.9 % (21.0-51.0) L 10/16/17 15:30 Overton % (Auto) 6.5 % (0.0-13.0) 10/16/17 15:30 Eos % (Auto) 0.4 % (0.9-2.9) L 10/16/17 15:30 Baso % (Auto) 1.1 % (0.2-1.0) H 10/16/17 15:30 Neut # (Auto) 12.0 x10^3/uL (2.2-4.8) H 10/16/17 15:30 Lymph # (Auto) 1.6 X10^3/uL (1.3-2.9) 10/16/17 15:30 Overton # (Auto) 1.0 x10^3/uL (0.3-0.8) H 10/16/17 15:30 Eos # (Auto) 0.1 x10^3/uL (0.0-0.2) 10/16/17 15:30 Baso # (Auto) 0.2 X10^3/uL (0.0-0.1) H 10/16/17 15:30 Absolute Nucleated RBC 0.0 /100WBC 10/16/17 15:30 Sodium 123 mmol/L (136-145) L* 10/16/17 15:30 Corrected Sodium 124 mmol/L (136-145) L 10/16/17 15:30 Potassium 4.8 mmol/L (3.5-5.1) 10/16/17 15:30 Chloride 90 mmol/L (98-107) L 10/16/17 15:30 Carbon Dioxide 21.2 mmol/L (21-32) 10/16/17 15:30 BUN 24 mg/dL (7-18) H 10/16/17 15:30 Creatinine 1.33 mg/dL (0.70-1.30) H 10/16/17 15:30 Est GFR (MDRD) Af Amer > 60 (>60) 10/16/17 15:30 Est GFR (MDRD) Non-Af 56 (>60) L 10/16/17 15:30 Glucose 157 mg/dL (65-99) H 10/16/17 15:30 Calcium 9.1 mg/dL (8.5-10.1) 10/16/17 15:30 Corrected Calcium 9.8 mg/dL (8.5-10.1) 10/16/17 15:30 Total Bilirubin 0.40 mg/dL (0.2-1.0) 10/16/17 15:30 AST 18 Units/L (15-37) 10/16/17 15:30 ALT 29 Units/L (12-78) 10/16/17 15:30 Alkaline Phosphatase 104 Units/L (46-116) 10/16/17 15:30 Total Protein 7.1 g/dL (6.4-8.2) 10/16/17 15:30 Albumin 3.1 g/dL (3.4-5.0) L 10/16/17 15:30 Globulin 4.0 g/dL (2.5-4.5) 10/16/17 15:30 Albumin/Globulin Ratio 0.8 Ratio (1.1-2.1) L 10/16/17 15:30 - Discharge Plan Condition: Stable - Follow ups/Referrals Follow ups/Referrals: ZACH AGUILAR [Primary Care Provider] - 3 days - Instructions
[2017-10-16] MEDS ORDERED: NS 1000 ML 1,000 ML IV ONE (15:54)
[2017-10-16 15:56] LABS: BASOPHILS # (AUTO) 0.2 X10^3/uL (0.0-0.1); BASOPHILS % (AUTO) 1.1 % (0.2-1.0); EOSINOPHILS # (AUTO) 0.1 x10^3/uL (0.0-0.2); EOSINOPHILS % (AUTO) 0.4 % (0.9-2.9); HEMATOCRIT 40.4 % (42.0-54.0); HEMOGLOBIN 14.2 g/dL (13.5-18.0); LYMPHOCYTES # (AUTO) 1.6 X10^3/uL (1.3-2.9); LYMPHOCYTES % (AUTO) 10.9 % (21.0-51.0); MEAN CORPUSCULAR HEMOGLOBIN 29.3 pg (27.0-34.0); MEAN CORPUSCULAR VOLUME 83.7 fL (80.0-100.0); MEAN PLATELET VOLUME 7.6 fL (7.4-11.0); MONOCYTES % (AUTO) 6.5 % (0.0-13.0); NEUTROPHILS % (AUTO) 81.1 % (42.0-75.0); PLATELET COUNT 433 X10^3/uL (150.0-450.0); RED BLOOD COUNT 4.83 X10^6/uL (4.7-6.0); RED CELL DISTRIBUTION WIDTH 16.9 % (11.6-16.5); WHITE BLOOD COUNT 14.8 X10^3/uL (3.6-10.0)
[2017-10-16] MEDS ORDERED: NS 1000 ML 1,000 ML ONE (16:00)
[2017-10-16 16:03] LABS: BLOOD UREA NITROGEN 24 mg/dL (7-18); CALCIUM 9.1 mg/dL (8.5-10.1); CARBON DIOXIDE 21.2 mmol/L (21-32); CHLORIDE 90 mmol/L (98-107); COR NA(FOR HYPERGLY) 124 mmol/L (136-145); CREATININE 1.33 mg/dL (0.70-1.30); eGFR BLACK RACES > 60 (>60); eGFR NON BLACK RACES 56 (>60)
[2017-10-16 16:07] LABS: ALANINE AMINOTRANSFERASE 29 Units/L (12-78); ALBUMIN 3.1 g/dL (3.4-5.0); ALKALINE PHOSPHATASE 104 Units/L (46-116); ASPARTATE AMINO TRANSFERASE 18 Units/L (15-37); COR CA(FOR HYPOALB) 9.8 mg/dL (8.5-10.1); TOTAL PROTEIN 7.1 g/dL (6.4-8.2)
[2017-10-16 16:14] LABS: SODIUM 123 mmol/L (136-145)
[2017-10-16] MEDS: NS 1000 ML 1,000 ML IV SCH (18:13)
[2017-10-16 18:17] LABS: BILIRUBIN,URINE NEGATIVE (NEGATIVE); BLOOD/HEMOGLOBIN,URINE NEGATIVE (NEGATIVE); GLUCOSE, URINE NEGATIVE (NEGATIVE); KETONES,URINE NEGATIVE (NEGATIVE); LEUKOCYTE ESTERASE ,URINE NEGATIVE (NEGATIVE); NITRITES,URINE NEGATIVE (NEGATIVE); PROTEIN,URINE NEGATIVE (NEGATIVE); UROBILINOGEN,URINE NORMAL (NORMAL)
[2017-10-16] MEDS: NORCO 5/325 MG TAB PO PRN (18:19)
[2017-10-16 18:25] LABS: APPEARANCE,URINE CLEAR (CLEAR); BACTERIA,URINE NEGATIVE /HPF (NEGATIVE); COLOR,URINE YELLOW (YELLOW); RBC,URINE 0-3 /HPF (NONE SEEN); SQUAMOUS EPITHELIAL CELL,UR RARE /HPF (NEGATIVE)
[2017-10-16 21:35] VITALS: BMI 29.9
[2017-10-17] MEDS: NORCO 5/325 MG TAB PO PRN ×3 (02:18→22:10)
[2017-10-17] MEDS: NS 1000 ML 1,000 ML IV SCH ×2 (02:18→14:42)
[2017-10-17 06:16] LABS: BASOPHILS % (AUTO) 0.2 % (0.2-1.0); EOSINOPHILS # (AUTO) 0.3 x10^3/uL (0.0-0.2); EOSINOPHILS % (AUTO) 3.2 % (0.9-2.9); HEMATOCRIT 35.7 % (42.0-54.0); HEMOGLOBIN 12.8 g/dL (13.5-18.0); LYMPHOCYTES # (AUTO) 1.2 X10^3/uL (1.3-2.9); LYMPHOCYTES % (AUTO) 12.2 % (21.0-51.0); MEAN CORPUSCULAR HEMOGLOBIN 29.9 pg (27.0-34.0); MEAN CORPUSCULAR HGB CONC 35.9 g/dL (33.0-35.0); MEAN CORPUSCULAR VOLUME 83.4 fL (80.0-100.0); MEAN PLATELET VOLUME 7.4 fL (7.4-11.0); MONOCYTES # (AUTO) 0.8 x10^3/uL (0.3-0.8); MONOCYTES % (AUTO) 8.1 % (0.0-13.0); NEUTROPHILS # (AUTO) 7.7 x10^3/uL (2.2-4.8); NEUTROPHILS % (AUTO) 76.3 % (42.0-75.0); PLATELET COUNT 316 X10^3/uL (150.0-450.0); RED BLOOD COUNT 4.28 X10^6/uL (4.7-6.0); RED CELL DISTRIBUTION WIDTH 17.3 % (11.6-16.5); WHITE BLOOD COUNT 10.1 X10^3/uL (3.6-10.0)
[2017-10-17 06:33] LABS: ALANINE AMINOTRANSFERASE 24 Units/L (12-78); ALBUMIN 2.5 g/dL (3.4-5.0); ALKALINE PHOSPHATASE 82 Units/L (46-116); ASPARTATE AMINO TRANSFERASE 14 Units/L (15-37); BLOOD UREA NITROGEN 17 mg/dL (7-18); CALCIUM 8.3 mg/dL (8.5-10.1); CARBON DIOXIDE 21.8 mmol/L (21-32); CHLORIDE 97 mmol/L (98-107); COR CA(FOR HYPOALB) 9.5 mg/dL (8.5-10.1); COR NA(FOR HYPERGLY) 130 mmol/L (136-145); CREATININE 1.01 mg/dL (0.70-1.30); SODIUM 129 mmol/L (136-145); TOTAL PROTEIN 5.8 g/dL (6.4-8.2); eGFR BLACK RACES > 60 (>60); eGFR NON BLACK RACES > 60 (>60)
[2017-10-17] MEDS ORDERED: NORCO 5/325 MG TAB PO PRN (09:03)
--- NOTE | 2017-10-17 19:27 | DR.H&P ---
H&P - History & Physical for Day of: H&P Date: 10/16/17 - Chief Complaint Chief Complaint: AMS, WEAKNESS, DEHYDRATION - Allergies Allergies/Adverse Reactions: Allergies Allergy/AdvReac Type Severity Reaction Status Date / Time No Known Drug Allergies Allergy Verified 10/16/17 14:59 - History of Present Illness History of Present Illness: 72 WM ER ADMISSION WITH SYMPTOMATIC HYPNATREMIA. PT HAS HX OF METASTATIC CANCER. PT FAMILY REPORTS HE HAS POOR PO INTAKE, GENERALIZED WEAKNESS AND DEHYDRATION WITH CONFUSION FOR 1-2 DAYS WORSE. PT WAS HYPONATREMIC ON ADMISSION LABS. PT ADMITTED FOR EVALUATION FOR AMS, DEHYDRATION. - Past Medical History Past Medical History: GERD Additional Medical History: CANCER, METASTATIC - Past Surgical History Surgical History: Abdominal Surgery, Bowel Resection, Cholecystectomy - Family History Family Medical History: Cancer - Social History Does patient currently use any type of tobacco product: No Have you used tobacco products in the last 12 months: No Type of Tobacco Use: None Does any household member use tobacco: No Alcohol Use: None Drug Use: None - Medications Home Medications: Dexamethasone [DECADRON TAB 4 MG *] 1 tab PO BID 10/16/17 [History Confirmed ] Hydrocodone-Acet 5 mg/325 mg [NORCO 5 MG/325 MG *] 1 tab PO Q8H PRN 10/16/17 [ History Confirmed 10/16/17] Warfarin Sodium [COUMADIN 5 MG *] 1 tab PO DAILY 10/16/17 [History Confirmed ] - Review of Systems Constitutional: Weakness Eyes: No Symptoms Reported ENT: No Symptoms Reported Respiratory: Shortness of Breath Cardiovascular: denies: Edema Gastrointestinal: Nausea Genitourinary: No Symptoms Reported Musculoskeletal: Back Pain, Leg Pain Skin: No Symptoms Reported Neurological: Weakness, Confusion - Physical Exam Vital Signs: Temperature 97.7 F Pulse Rate [Left Brachial] 110 Pulse Rate 103 Respiratory Rate 22 Blood Pressure [Right Arm] 83/55 Blood Pressure 127/85 O2 Sat by Pulse Oximetry 95 Oriented: Normal Eyes: Normal Ear: Normal Nose: Normal Throat: Normal Respiratory: RLL Diminished, LLL Diminished Cardiovascular: Normal. negative: Edema : Normal Auscultation: Bowel Sounds: Increased Tenderness: Epigastric Skin: Decreased Turgur Musculoskeletal: Leg, Back:Thoracic, Back:Lumbar Psychiatric: Anxiety Affect: Anxious Speech Pattern: Clear, Appropriate - Assessment/Plan (1) Cancer of colon Status: Acute Plan: ADMIT, IV HYDRATION PAIN CONTROL. RESUME HOME MEDS (2) Dehydration Status: Acute (3) Hyponatremia Status: Acute (4) Lung cancer Qualifiers: Laterality: unspecified laterality Lung location: unspecified part of lung Qualified Code(s): C34.90 - Malignant neoplasm of unspecified part of unspecified bronchus or lung Status: Acute (5) Pulmonary embolism Qualifiers: Pulmonary embolism type: septic Chronicity: acute Acute cor pulmonale presence: without acute cor pulmonale Qualified Code(s): I26.90 - Septic pulmonary embolism without acute cor pulmonale Status: Acute (6) Confusion Status: Acute
[2017-10-17] MEDS: DECADRON TAB PO SCH (20:00)
[2017-10-18] MEDS: NS 1000 ML 1,000 ML IV SCH (02:34)
[2017-10-18 05:38] LABS: BASOPHILS # (AUTO) 0.2 X10^3/uL (0.0-0.1); BASOPHILS % (AUTO) 1.2 % (0.2-1.0); HEMATOCRIT 38.5 % (42.0-54.0); HEMOGLOBIN 13.3 g/dL (13.5-18.0); LYMPHOCYTES # (AUTO) 1.1 X10^3/uL (1.3-2.9); LYMPHOCYTES % (AUTO) 7.4 % (21.0-51.0); MEAN CORPUSCULAR HEMOGLOBIN 29.3 pg (27.0-34.0); MEAN CORPUSCULAR HGB CONC 34.7 g/dL (33.0-35.0); MEAN CORPUSCULAR VOLUME 84.6 fL (80.0-100.0); MEAN PLATELET VOLUME 7.5 fL (7.4-11.0); MONOCYTES # (AUTO) 0.3 x10^3/uL (0.3-0.8); MONOCYTES % (AUTO) 2.2 % (0.0-13.0); NEUTROPHILS # (AUTO) 12.8 x10^3/uL (2.2-4.8); NEUTROPHILS % (AUTO) 89.2 % (42.0-75.0); PLATELET COUNT 376 X10^3/uL (150.0-450.0); RED BLOOD COUNT 4.55 X10^6/uL (4.7-6.0); RED CELL DISTRIBUTION WIDTH 17.1 % (11.6-16.5); WHITE BLOOD COUNT 14.4 X10^3/uL (3.6-10.0)
[2017-10-18 05:59] LABS: ALANINE AMINOTRANSFERASE 25 Units/L (12-78); ALBUMIN 2.8 g/dL (3.4-5.0); ALKALINE PHOSPHATASE 92 Units/L (46-116); ASPARTATE AMINO TRANSFERASE 14 Units/L (15-37); BLOOD UREA NITROGEN 14 mg/dL (7-18); CALCIUM 8.6 mg/dL (8.5-10.1); CARBON DIOXIDE 19.4 mmol/L (21-32); CHLORIDE 98 mmol/L (98-107); COR CA(FOR HYPOALB) 9.6 mg/dL (8.5-10.1); COR NA(FOR HYPERGLY) 131 mmol/L (136-145); CREATININE 1.09 mg/dL (0.70-1.30); SODIUM 129 mmol/L (136-145); TOTAL PROTEIN 6.7 g/dL (6.4-8.2); eGFR BLACK RACES > 60 (>60); eGFR NON BLACK RACES > 60 (>60)
[2017-10-18] MEDS: DECADRON TAB PO SCH (08:50)
[2017-10-18] MEDS ORDERED: COUMADIN TAB 5 MG PO SCH (09:00)
--- NOTE | 2017-10-18 09:16 | RAD ---
HISTORY: Lung cancer, shortness of breath Study: Single-view chest, done portably Comparison: Chest x-ray and CT scan of chest done 07/21/2017. Findings: Left-sided LifePort is again seen inserted via an internal jugular approach. The catheter tip is in t he mid SVC. Trachea is midline. There is cardiomegaly. Right lung is clear but is hyperexpanded. Ther e is a prominent azygos vein present in the right upper lobe. There is elevation of the left hemidiap hragm with volume loss increasing density in the right lung base. Left hilar mass is again seen. Cent ral obstruction may be present. Osseous structures are intact. IMPRESSION: Elevation of the left hemidiaphragm with increased density in the left lung base. Left hilar mass eff ect is again present. Findings may represent central obstruction. Mild hyperinflation of the right roxi ng is present. Reported By:
[2017-10-18 12:37] VITALS: BP 142/77
== END 2017-10-18 13:09 | disposition home or self-care (01) | DRG 641 ==
LOC: ER 15:03 → MED/SURG 17:45
PROVIDERS: ADMIT Internal Medicine; ATTEND Internal Medicine
DX: E87.1 Hypo-osmolality and hyponatremia (principal); E86.0 Dehydration; R41.82 Altered mental status, unspecified; C79.31 Secondary malignant neoplasm of brain; C78.00 Secondary malignant neoplasm of unspecified lung; R53.1 Weakness; K21.9 Gastro-esophageal reflux disease without esophagitis; R63.0 Anorexia; Z85.038 Personal history of other malignant neoplasm of large intestine
CPT/HCPCS: 36415; 71045; 80053; 81001; 85025; 85610; 93005; 93010; 96365; 99282; 99284; A4222; J8540

== ENCOUNTER → 2017-10-22 | Outpatient (CLI) | payer OTHER ==
[2017-10-18 12:37] VITALS: BP 142/77
[2017-10-22 12:52] LABS: BASOPHILS # (AUTO) 0.1 X10^3/uL (0.0-0.1); BASOPHILS % (AUTO) 0.9 % (0.2-1.0); EOSINOPHILS # (AUTO) 0.2 x10^3/uL (0.0-0.2); EOSINOPHILS % (AUTO) 1.4 % (0.9-2.9); HEMATOCRIT 43.2 % (42.0-54.0); HEMOGLOBIN 14.8 g/dL (13.5-18.0); LYMPHOCYTES # (AUTO) 1.6 X10^3/uL (1.3-2.9); LYMPHOCYTES % (AUTO) 11.3 % (21.0-51.0); MEAN CORPUSCULAR HEMOGLOBIN 29.4 pg (27.0-34.0); MEAN CORPUSCULAR HGB CONC 34.3 g/dL (33.0-35.0); MEAN CORPUSCULAR VOLUME 85.7 fL (80.0-100.0); MEAN PLATELET VOLUME 7.2 fL (7.4-11.0); MONOCYTES # (AUTO) 0.9 x10^3/uL (0.3-0.8); MONOCYTES % (AUTO) 6.4 % (0.0-13.0); NEUTROPHILS # (AUTO) 11.2 x10^3/uL (2.2-4.8); PLATELET COUNT 433 X10^3/uL (150.0-450.0); RED BLOOD COUNT 5.03 X10^6/uL (4.7-6.0); RED CELL DISTRIBUTION WIDTH 16.8 % (11.6-16.5)
--- NOTE | 2017-10-22 12:52 | RAD ---
Exam: Chest, frontal view History: 72-year-old male with shortness of breath. History of lung cancer. Comparison: Previous chest radiograph from 10/18/2017. Findings: Left chest wall port is again noted with the tip in the superior vena cava. Increasing opacification is noted over the lower lung field on the left, now extending up toward the left upper lobe. This ma y represent a combination of progressive consolidation and enlarging left pleural effusion. Cardiomed iastinal structures are stable. Prominent azygos vein is again identified on the right. Right lung is clear. IMPRESSION: Increasing opacification on the left may be related to progressive consolidation and enlarging left p leural effusion. Reported By:
[2017-10-22 13:04] LABS: ALBUMIN 3.1 g/dL (3.4-5.0); BLOOD UREA NITROGEN 21 mg/dL (7-18); CALCIUM 9.6 mg/dL (8.5-10.1); CARBON DIOXIDE 23.1 mmol/L (21-32); CHLORIDE 97 mmol/L (98-107); COR CA(FOR HYPOALB) 10.3 mg/dL (8.5-10.1); COR NA(FOR HYPERGLY) 134 mmol/L (136-145); PHOSPHORUS 3.8 mg/dL (2.6-4.7); SODIUM 132 mmol/L (136-145); URIC ACID 7.4 mg/dL (3.5-7.2); eGFR BLACK RACES > 60 (>60); eGFR NON BLACK RACES > 60 (>60)
[2017-10-22 13:18] LABS: PLATELET MORPHOLOGY COMMENT NORMAL (NORMAL)
== END ==
LOC: LAB 12:12
PROVIDERS: ATTEND Internal Medicine
DX: N18.3 Chronic kidney disease, stage 3 (moderate) (principal); R06.02 Shortness of breath
CPT/HCPCS: 36415; 71045; 80069; 84550; 85025